=== PATIENT | male | born 1970 | race Two or more races ===

== ENCOUNTER 2021-02-08 01:13 | Emergency (ER) | payer BC, MEDICAID ==
[~2021-02-08] VITALS: Ht 182.9 cm; Wt 81.6 kg
[2021-02-08] MEDS ORDERED: MORPHINE SULFATE 4 MG/ML SYR/VIAL IV ONE (02:30)
[2021-02-08] MEDS ORDERED: ONDANSETRON HCL 4 MG/2 ML VIAL IV ONE (02:30)
[2021-02-08] MEDS ORDERED: fentaNYL CITRATE 100 MCG/2 ML VL IV ONE (05:45)
[2021-02-08] MEDS ORDERED: HYDROmorphone HCL 2 MG/ML VL IV ONE (06:15)
[2021-02-08] MEDS ORDERED: LIDOCAINE 5% TOPICAL PATCH TOP ONE ×2 (06:15)
[2021-02-08] MEDS ORDERED: HYDROcodone-ACET 5/325MG TAB PO ONE (07:30)
[2021-02-08 08:00] VITALS: BP 125/83
== END 2021-02-08 08:30 | disposition home or self-care (01) ==
LOC: EDBD 01:13 → ER 01:18
DX: S22.32XA Fracture of one rib, left side, initial encounter for closed fracture (principal); S27.0XXA Traumatic pneumothorax, initial encounter; F17.210 Nicotine dependence, cigarettes, uncomplicated; Y08.89XA Assault by other specified means, initial encounter; Y93.89 Activity, other specified; Y92.89 Other specified places as the place of occurrence of the external cause; Y99.8 Other external cause status
CPT/HCPCS: 36415; 70450; 70486; 71101; 80320; 96374; 96375; 99285; J1170; J2270; J2405; J3010

== ENCOUNTER 2022-07-10 16:52 | Emergency (ER) | payer MEDICAID ==
[~2022-07-10 16:52] MED LIST: AMOX-277 PO; IBUP600T27 PO; PRED20TA2 PO
== END 2022-07-11 04:59 | disposition left against medical advice (07) ==
LOC: ER 16:52
DX: R06.02 Shortness of breath (principal); Z53.21 Procedure and treatment not carried out due to patient leaving prior to being seen by health care provider

== ENCOUNTER 2022-07-14 04:50 | Emergency (ER) | payer MEDICAID ==
[~2022-07-14] VITALS: Ht 167.6 cm; Wt 72.7 kg
[2022-07-14 05:14] VITALS: BP 92/60
== END 2022-07-14 07:17 | disposition left against medical advice (07) ==
LOC: ER 05:00
DX: R07.9 Chest pain, unspecified (principal); Z53.21 Procedure and treatment not carried out due to patient leaving prior to being seen by health care provider
CPT/HCPCS: 93005